=== PATIENT | female | born 1950 | race African-American/Black ===

== ENCOUNTER → 2016-11-15 | Outpatient (CLI) | payer MEDICARE, OTHER ==
[~2016-11-15] MED LIST: ASCO500T2 PO; BUPIVACAINE MPF 0.25% 10 ML VIAL. ONE; CALC500T27 PO; CHOL500016 PO; IOHEXOL 180 MG/ML 10 ML VIAL. ONE; MULT-208 PO; OMEG300C PO; OMEP20TA63 PO; methylPREDNISolone ACETATE 40 MG/ML VIAL. ONE; methylPREDNISolone ACETATE 80 MG/ML VIAL. ONE
--- NOTE | 2016-11-16 06:16 | PAIN ---
DATE OF SERVICE: 11/15/2016 INITIAL CONSULTATION FOR PAIN CLINIC CHIEF COMPLAINT: Low back and left hip and lower extremity pain. HISTORY OF PRESENT ILLNESS: This is a 66-year-old female who presents with a history of pain in the low back, left hip and leg radiating for about 4 months now, not a result of any specific injury or action that she is aware of. This came up gradually, worse with standing and walking, significant pain in the left groin as well as in the low back radiating to the anterior lateral thigh, medial thigh, medial lower leg to the level of the ankle on the left side only. The patient reports no significant pain on the right side. Left side ____ of the leg as well as across the low back, lateral thigh, medial thigh, anterior and medial lower leg, it was noted. The patient reports it is sharp, alternating with radiating pain, shooting and stabbing occasionally and aching and sharp in the groin as well. The patient reports it is worse with putting all of her weight on her left leg, standing for more than about 10-15 minutes. She has tried physical therapy, which temporarily decreased the pain. Also, she is doing exercises on her own currently through [facility]. She has tried hydrocodone, which does help the pain about 50%. The patient reports it awakens her from sleep at least twice at night in the left hip and does affect her ability to walk significantly, although she is not using any assistive devices at this time currently. The patient did have plain films of the hip and lumbar spine showing severe degenerative disk disease and facet arthropathy at the L5-S1 level with L4-L5 anterolisthesis, also with osteoarthritis of the left hip and degenerative joint disease of the left hip. The patient reports it is better with stretching her legs. She is having her pull on her left leg at night when she is lying down and this does relieve some of the pain temporarily. The patient reports her disability rating from 0-10, 10 being the worst, as an 8 with family and home responsibilities, recreation, social activity and self-care, 10 with sexual behavior, 7 with life support activities. No loss of motor function, but significant fatigability with the left leg with standing and walking. PAST MEDICAL HISTORY: Significant for asthma, seasonal sinus congestion, gastroesophageal reflux, arthritis, headaches. PREVIOUS SURGERIES: Include tubal ligation and bunionectomy in both feet. CURRENT MEDICATIONS: Include Prilosec, fish oil, multivitamins, vitamin D, vitamin C, calcium, hydrocodone. ALLERGIES: The patient has no known drug allergies. FAMILY HISTORY: Significant for breast cancer and stomach cancer. SOCIAL HISTORY: The patient does not smoke. Drinks 1 glass of wine about twice a month on average. She is , lives with her spouse. No children living at home, lives locally in [place], [place]. REVIEW OF SYSTEMS: Positive for those items mentioned in the history of present illness. All systems reviewed and otherwise negative. It is complete, full and well documented on the patient's chart. PHYSICAL EXAMINATION: VITAL SIGNS: The patient's blood pressure is 135/95, pulse 103, respirations 18, temperature 98.1 degrees Fahrenheit. Height is 5 feet 8 inches, weight is 165 pounds. GENERAL: The patient is awake, alert, oriented, appropriate, has a very pleasant demeanor. The patient is accompanied by her spouse. HEENT: Shows normocephalic, atraumatic. Extraocular movements are intact and symmetrical. Oral cavity shows mucous membranes are moist and pink. Dentition is intact. NECK: Shows anterior throat supple without palpable lymphadenopathy noted. Swallow reflex is symmetrical. Neck shows full rotational motion of the cervical spine without difficulty or tenderness. CHEST: Shows normal on inspection. Breath sounds are clear to auscultation bilaterally. HEART: Shows S1 and S2 clear. No murmurs auscultated. ABDOMEN: Soft, nontender, nondistended. No palpable organomegaly is noted. No rebound or guarding demonstrated. BACK: Shows spine grossly in the midline. Normal-appearing thoracic kyphosis and lumbar lordotic curvature. No previous bruises, lesions, rashes or scars are noted. Lumbar paraspinous musculature shows symmetrical with inspection, with palpation shows some very mild tenderness in the low lumbar distribution diffusely bilaterally, slightly worse on the left than the right, but does not appear asymmetric, no trigger points, no radiation of pain, no tenderness over the spinous processes. No tenderness over the sacrum or sacroiliac regions with palpation. The patient has good rotational motion both laterally as well as extension and flexion without significant pain reported as well. LOWER EXTREMITIES: Show deep tendon reflexes 2+ in the patellar and 1+ tendo calcaneus tendons, are equal. Motor exam is strong with approximately 4 on a scale of 5 with left dorsiflexion, extension, quadriceps and hamstring flexion, 5/5 on the right. Peripheral pulses are 1+ posterior tibial and dorsalis pedis pulses. No peripheral edema is noted. No clubbing, no cyanosis. Lower extremities are warm and dry to touch, equal in color and appearance. The patient shows positive straight leg raise about 45 degrees on the left and negative on the right. Also, positive Herminio's maneuver with external rotation of the left hip with knee flexion and negative on the right side as well. The patient is able to stand, stand on her toes without significant difficulty, walks with a slight wavering gait favoring the left lower extremity slightly, but without any assistive devices to ambulate. IMPRESSION: 1. This is a 66-year-old female with an approximately 4-month history of increasing low back pain with significant findings on x-ray with both degenerative joint disease of the left hip and degenerative disk disease and spondylolisthesis of the lumbar spine with both radicular qualities and intra-articular hip pain on the left side. 2. Arthritis. PLAN: Options were discussed with the patient and the patient's spouse who accompanied her to visit today including conservative medical management, continued physical therapies, interventional techniques. She would like to pursue interventional techniques. We discussed a left intra-articular hip joint injection using description as well as anatomical models to describe the procedure. The patient would like to proceed with this. Risks were then discussed including, but not limited to bleeding, infection, possibility of intravascular injection sequelae, spread of local anesthetic and numbness, side effects of steroid medications, exposure to fluoroscopy as well as poor results regarding pain control. The patient understands and wishes to proceed. The patient will return to clinic in approximately 2 weeks for followup, was counseled on return appointment, activity level and side effects to be aware of. We did discuss the possibility of a lumbar epidural steroid injection if the hip joint is feeling much better, but still having the radicular qualities into the lower leg on her return. DIAGNOSIS: Primary osteoarthritis with degenerative joint disease, left hip. PROCEDURE: Left intra-articular hip joint injection with fluoroscopic guidance under sterile prep and drape using local anesthetic. MEDICATIONS INJECTED: 80 mg Depo-Medrol plus 3 mL of 0.25% bupivacaine and 2 mL of Isovue for contrast. CONDITION AT DISCHARGE: Stable. The patient tolerated the procedure well, had no complications. MARBELLA OSORIO MD DR: BONITA/nevaeh JOB#: [id number] / [id number]
== END | disposition home or self-care (01) ==
LOC: PNCL 08:28
PROVIDERS: ATTEND Anesthesiology
DX: M16.12 Unilateral primary osteoarthritis, left hip (principal); J45.909 Unspecified asthma, uncomplicated; K21.9 Gastro-esophageal reflux disease without esophagitis; Z80.3 Family history of malignant neoplasm of breast; Z80.0 Family history of malignant neoplasm of digestive organs; Z98.51 Tubal ligation status
CPT/HCPCS: 20610; 77002; J1040; J3490; J1030

== ENCOUNTER → 2016-11-29 | Outpatient (CLI) | payer MEDICARE, OTHER ==
[~2016-11-29] MED LIST changes: -BUPIVACAINE MPF 0.25% 10 ML VIAL. ONE; -IOHEXOL 180 MG/ML 10 ML VIAL. ONE; -methylPREDNISolone ACETATE 40 MG/ML VIAL. ONE; -methylPREDNISolone ACETATE 80 MG/ML VIAL. ONE
--- NOTE | 2016-11-29 18:52 | PAIN ---
DATE OF SERVICE: 11/29/2016 PROGRESS NOTE FOR PAIN CLINIC DIAGNOSES: 1. Lumbar radiculopathy with lumbar degenerative disk disease. 2. Left hip joint pain with primary osteoarthritis. HISTORY OF PRESENT ILLNESS: The patient is a 66-year-old female who returns for followup status post left hip joint intraarticular injection reports near 100% improvement in her left hip joint. She is very pleased with her progress of this, still having some pain across the low back and bilateral lower extremities, mostly in the lateral and posterior thighs, lateral and medial lower legs and the posterior lower legs bilaterally. The patient reports it is a sharp pain, alternating with an aching, dull pain with heat sensation in the lower leg. The patient reports that her hip is doing so much better that she is increasing her activity quite significantly, but the back pain and leg pain is limiting her to fair extent as well. We reviewed the patient's MRI scan showing some degenerative disk disease and discussed that with the patient once again today. She would like to wait on any further procedures at this time. We will have her come back in about 1 week for a lumbar epidural steroid injection at that time. The patient reports otherwise doing very well, reports the pain in her hip is 0 on a scale of 10 and the low back is 4. The patient reports no new bowel or bladder incontinence, no new motor or sensory deficits. PHYSICAL EXAMINATION: VITAL SIGNS: The patient's blood pressure 120/71, pulse 71, respirations 20, temperature 98.3 degrees Fahrenheit, weight is 164 pounds. GENERAL: The patient is awake, alert, oriented, appropriate, very pleasant demeanor. The patient accompanied by her . HEENT: Head shows normocephalic, atraumatic. Extraocular movements are intact and symmetrical. Oral cavity, mucous membranes are moist and pink. NECK: Shows anterior throat supple. CHEST: Shows breath sounds clear to auscultation bilaterally. HEART: Shows S1 and S2 clear. No murmurs auscultated. ABDOMEN: Soft, nontender, nondistended. BACK: Shows spine grossly in midline. The patient's lumbar paraspinous muscle shows some diffuse tenderness with palpation in the lower lumbar distribution only without atrophy, hypertrophy without asymmetry, no radiation of pain, no tenderness over the sacrum or sacroiliac regions. The patient shows good rotation and motion of lumbar spine, both laterally as well as extension and flexion without difficulty. LOWER EXTREMITIES: Showed deep tendon reflexes at 2+ in the patellar tendons. Motor exam is approximately 4 on a scale of 5 with left dorsiflexion, extension and 5/5 on the right. Gaenslen's procedure is negative bilaterally. Herminio's procedure is very negative now with external rotation of the left hip much different from previous exam. Options were discussed with the patient and the patient's old chart was reviewed as her current medication regimen updated. Current review of systems updated today as well and we will have patient return in approximately 1 week as she would like to wait on any further injections until she is mentally prepared for this. We will have her return for lumbar epidural steroid injection. We discussed the procedure using anatomical models to describe it and questions were answered for the patient. She will return as noted and we will proceed at that time. MARBELLA OSORIO MD DR: BONITA/nevaeh JOB#: [id number] / [id number]
== END | disposition home or self-care (01) ==
LOC: PNCL 08:56
PROVIDERS: ATTEND Anesthesiology
DX: M51.16 Intervertebral disc disorders with radiculopathy, lumbar region (principal); M16.12 Unilateral primary osteoarthritis, left hip
CPT/HCPCS: G0463

== ENCOUNTER → 2016-12-06 | Outpatient (CLI) | payer MEDICARE, OTHER ==
[~2016-12-06] MED LIST changes: +IOHEXOL 180 MG/ML 10 ML VIAL. ONE; +methylPREDNISolone ACETATE 40 MG/ML VIAL. ONE; +methylPREDNISolone ACETATE 80 MG/ML VIAL. ONE
--- NOTE | 2016-12-06 19:35 | PAIN ---
DATE OF SERVICE: 12/06/2016 DIAGNOSES: 1. Lumbar radiculopathy with lumbar degenerative disease. 2. Left hip joint pain with primary osteoarthritis. HISTORY OF PRESENT ILLNESS: The patient is a 66-year-old female, who returns for followup status post left hip joint injection. The patient did very well with this near 100% improvement, still some pain in the low back and bilateral lower extremities, somewhat worse on the left than the right, present, she was ____ and trying a lumbar epidural steroid injection on last visit and come back about a week ago and she would like to try this today, she says that time to think about this and talked with her spouse to starting it and like to proceed. The patient with some degenerative disk disease and lumbar spine, mostly at the L4-L5 level. The patient reports no new motor or sensory deficits, still significant pain in the low back in the left leg with some painful and swollen feeling in the knee on the left side raising from 1 to 7 on a scale of 10, worse with activity, standing, walking, changing positions and tingling pain that tight in the low back and the left leg greater than the right. The patient reports no new motor or sensory deficits, no new bowel or bladder incontinence or other complaints. PHYSICAL EXAMINATION: VITAL SIGNS: The patient's blood pressure 107/66, pulse 93, respirations are 16, temperature 97.9 degrees Fahrenheit. Height is 5 feet 8 inches, weight is 161 pounds. GENERAL: The patient is awake, alert, oriented, appropriate, very pleasant demeanor. HEENT: Head shows normocephalic, atraumatic. Extraocular movements are intact and symmetrical. Oral cavity, mucous membranes moist and pink. Dentition is intact. NECK: Shows anterior throat supple without palpable lymphadenopathy noted. Swallow reflex is symmetrical. CHEST: Shows normal on inspection. Breath sounds clear to auscultation bilaterally. HEART: Shows S1 and S2 clear. ABDOMEN: Soft, nontender, nondistended. BACK: Shows spine grossly midline. Lumbar paraspinous muscle shows some moderate tenderness with palpation only in the lower lumbar distribution without significant radiation. The patient has good rotational motion of lumbar spine, both laterally as well as extension and flexion. EXTREMITIES: Lower extremities showed deep tendon reflexes 2+ in the patellar tendons. Motor exam is strong with 5/5 dorsiflexion, extension, quadriceps and hamstring flexion. Options were discussed with the patient. We will proceed with a lumbar epidural steroid injection today with fluoroscopic guidance. Risks were again discussed including, but not limited to bleeding, infection, possibility of epidural hematoma, subsequent neurologic compromise, dural puncture, headaches, spinal cord and/or nerve damage, side effects of steroid medication and poor results regarding pain control. The patient understands and wishes to proceed. The patient will return to clinic in approximately 2 weeks for followup. She was counseled as to return appointment, activity level and side effects to be aware of. DIAGNOSES: Lumbar radiculopathy with lumbar degenerative disk disease. PROCEDURES: Lumbar epidural steroid injection in translaminar approach at the L4-L5 level using C-arm fluoroscopic guidance under sterile prep and drape using local anesthesia MEDICATIONS INJECTED: 120 mg Depo-Medrol plus 10 mL of preservative-free normal saline and 2 mL of Isovue for contrast. CONDITION AT DISCHARGE: Stable. The patient tolerated procedure well, had no complications. MARBELLA OSORIO MD DR: BONITA/nevaeh JOB#: [id number] / [id number]
== END | disposition home or self-care (01) ==
LOC: PNCL 09:45
PROVIDERS: ATTEND Anesthesiology
DX: M51.16 Intervertebral disc disorders with radiculopathy, lumbar region (principal); M16.12 Unilateral primary osteoarthritis, left hip
CPT/HCPCS: 62323; J1030; J1040

== ENCOUNTER → 2016-12-25 | Outpatient (CLI) | payer MEDICARE, OTHER ==
[~2016-12-25] MED LIST changes: -IOHEXOL 180 MG/ML 10 ML VIAL. ONE; -methylPREDNISolone ACETATE 40 MG/ML VIAL. ONE; -methylPREDNISolone ACETATE 80 MG/ML VIAL. ONE
--- NOTE | 2016-12-26 02:06 | PAIN ---
DATE OF SERVICE: 12/25/2016 PROGRESS NOTE FOR PAIN CLINIC DIAGNOSES: 1. Lumbar radiculopathy with lumbar degenerative disk disease. 2. Left hip joint pain with primary left hip osteoarthritis. HISTORY OF PRESENT ILLNESS: The patient is a 66-year-old female who returns for followup status post lumbar epidural steroid injection x 1 and previous left hip joint injection. The patient did very well with each of these, reports about 100% improvement after her lumbar epidural steroid injection, which was on 12/06/2016. The patient reports a 0 pain on a scale of 10 at anytime during the day. She has an increase in her activity with greater ease and comfort and sleeping well at night, no disruptions from that, is very pleased with her progress thus far. The patient relates the story while she was playing with her granddaughter yesterday for about 6 hours, sitting on a hard surface floor, had no difficulty, no pain or distress or need to change her activity. The patient is very pleased with her progress, reports no new motor or sensory deficits, no new bowel or bladder incontinence or other complaints. PHYSICAL EXAMINATION: VITAL SIGNS: The patient's blood pressure is 106/71, pulse 90, respirations are 18, temperature 98.1 degrees Fahrenheit. Height is 5 feet 8 inches, weight is 165 pounds. GENERAL: The patient is awake, alert, oriented, appropriate, has a very pleasant demeanor. HEENT: Head shows normocephalic, atraumatic. Extraocular movements are intact and symmetrical. Oral cavity shows mucous membranes moist and pink. Dentition is intact. NECK: Shows anterior throat supple without palpable lymphadenopathy noted. Swallow reflex is symmetrical. CHEST: Shows normal on inspection. Breath sounds are clear to auscultation bilaterally. HEART: Shows S1, S2 clear. ABDOMEN: Soft, nontender, nondistended. BACK: Shows spine grossly in the midline. Moderate discomfort with only deep palpation in the lumbar paraspinous muscles bilaterally without radiation or asymmetry. The patient has full rotational motion of the lumbar spine, both laterally as well as extension and flexion. EXTREMITIES: Lower extremities show deep tendon reflexes 2+ in the patellar tendons. Motor exam is strong with 5/5 dorsiflexion, extension, quadriceps and hamstring flexion and equal. Options were discussed with the patient and the patient's old chart was reviewed as her current medication regimen updated. Current review of systems updated today as well. We will hold on any further injections as she is doing much better. The patient was encouraged to increase activity greater with gradual increase in activity as tolerated and will report back on an as-needed basis at this time. MARBELLA OSORIO MD DR: BONITA/nevaeh JOB#: [id number] / [id number]
== END | disposition home or self-care (01) ==
LOC: PNCL 09:31
PROVIDERS: ATTEND Anesthesiology
DX: M51.16 Intervertebral disc disorders with radiculopathy, lumbar region (principal); M25.552 Pain in left hip; M16.12 Unilateral primary osteoarthritis, left hip
CPT/HCPCS: G0463

== ENCOUNTER 2019-05-14 16:31 | Emergency (ER) | payer MEDICARE ==
[~2019-05-14] VITALS: Ht 172.7 cm; Wt 74.8 kg
[~2019-05-14 16:31] MED LIST changes: -CALC500T27 PO; +CALC500T30 PO
[2019-05-14] MEDS ORDERED: HYDROcodone/APAP 5/325MG 1 TAB TABLET PO ONE (17:00)
[2019-05-14] MEDS ORDERED: ONDANSETRON ODT 4 MG TAB.RAPDIS. PO ONE (17:00)
[2019-05-14] MEDS ORDERED: diazePAM 5 MG TABLET PO ONE (17:00)
--- NOTE | 2019-05-14 17:18 | PHYS DOC ---
Adult General Chief Complaint Chief Complaint: MECHANICAL FALL HPI HPI Patient is a 68 year old female with no significant medical history who presents to the ED today complaining of falling down 7 steps. Patient states a carpeted been cleaned and she was trying to walk down a weight carpeted stair case, she states she slid and fell down 7 steps, she states she hit the back of her head on the carpet as well as her low back. Denies any loss of consciousness. Denies being on any anticoagulants. Denies any neck pain. She is complaining of moderate back pain most of it on the lower back specifically buttocks. Patient states the pain is worse on sitting on her buttocks. (FIDEL ALCANTAR APRN) Review of Systems Review of Systems Constitutional: Denies fever or chills [] Eyes: Denies change in visual acuity, redness, or eye pain [] HENT: Denies nasal congestion or sore throat [] Respiratory: Denies cough or shortness of breath [] Cardiovascular: No additional information not addressed in HPI [] GI: Denies abdominal pain, nausea, vomiting, bloody stools or diarrhea [] : Denies dysuria or hematuria [] Musculoskeletal: Reports back pain specifically low back pain Integument: Denies rash or skin lesions [] Neurologic: Reports hitting the back of the head when she fell. Denies headache, focal weakness or sensory changes [] All other systems were reviewed and found to be within normal limits, except as documented in this note. (FIDEL ALCANTAR APRN) Current Medications Current Medications Current Medications Medications (Trade) Dose Ordered Sig/Anni Start Time Stop Time Status Last Admin Dose Admin Acetaminophen/ Hydrocodone Bitart (Lortab 5/325) 2 tab 1X ONCE 05/14/19 17:00 05/14/19 17:01 DC 05/14/19 17:43 2 TAB Diazepam (Valium) 5 mg 1X ONCE 05/14/19 17:00 05/14/19 17:01 DC 05/14/19 17:43 5 MG Ondansetron HCl (Zofran Odt) 4 mg 1X ONCE 05/14/19 17:00 05/14/19 17:01 DC 05/14/19 17:43 4 MG (ROSALVA VINES DO) Allergies Allergies Allergies Coded Allergies Type Severity Reaction Last Updated Verified Penicillins Allergy Intermediate 11/15/16 Yes (ROSALVA VINES DO) Physical Exam Physical Exam Constitutional: Well developed, well nourished, no acute distress, non-toxic appearance. [] HENT: Normocephalic, atraumatic, bilateral external ears normal, oropharynx moist, no oral exudates, nose normal. [] Eyes: PERRLA, EOMI, conjunctiva normal, no discharge. [] Neck: Normal range of motion, no tenderness, supple, no stridor. [] Cardiovascular:Heart rate regular rhythm, no murmur [] Lungs & Thorax: Bilateral breath sounds clear to auscultation [] Abdomen: Bowel sounds normal, soft, no tenderness, no masses, no pulsatile masses. [] Skin: Warm, dry, no erythema, no rash. [] Back: Diffuse paraspinal muscle tenderness to bilateral lumbar spine worse around the coccyx, no thoracic midline tenderness, some paraspinal muscle tenderness noted on the right thoracic spine, no CVA tenderness. [] Extremities: No tenderness, no cyanosis, no clubbing, ROM intact, no edema. [] Neurologic: Alert and oriented X 3, normal motor function, normal sensory function, no focal deficits noted. [] Psychologic: Affect normal, judgement normal, mood normal. [] (FIDEL ALCANTAR APRN) Current Patient Data Vital Signs Vital Signs Date Time Temp Pulse Resp B/P (MAP) Pulse Ox O2 Delivery O2 Flow Rate FiO2 05/14/19 18:52 83 18 95 05/14/19 17:43 Room Air 05/14/19 16:50 99.2 124/96 (105) 99.2 (ROSALVA VINES DO) EKG EKG [] (FIDEL ALCANTAR APRN) Radiology/Procedures Radiology/Procedures []PROCEDURE: CT HEAD AND CERVICAL SPINE WO Examination: CT THORACIC SPINE WO CONTRAST, CT HEAD AND CERVICAL SPINE WO, CT LUMBAR SPINE WO CONTRAST History: Fall, pain Comparison/Correlation: None Findings: Axial images of the head, cervical spine, thoracic spine, and lumbar spine were obtained. Sagittal and coronal reformatted images of the spine were provided. Ventricles are normal size. No intracranial hemorrhage, midline shift, or mass effect. No depressed skull fracture. Globes and optic nerves are unremarkable. Posterior left apical spiculated bilobed mass or 2 adjacent masses is evident. These collectively measure 1.9 cm transverse by 1.1 cm anteroposterior by 1.4 cm longitudinal. Biapical pleural thickening noted. Emphysematous involvement of the lung apices noted. Advanced atlantoaxial joint degenerative remodeling and spurring noted. Reversal of cervical lordosis is present. Severe C3-4 disc space narrowing is present. Moderate to severe C6-7 disc space narrowing is present. Bony encroachment on the neural foramina involves C3-4 bilaterally greater on the right. Multilevel degenerative space narrowing of the thoracic spine is present. Alignment of the thoracic spine is unremarkable. Multilevel facet joint degenerative remodeling of the low lumbar spine is evident. Minimal anterolisthesis of L3 in relation L4 is noted. Endplate sclerosis at L5-S1 noted. Bony encroachment on the neural foramina bilaterally is evident. Concentric disc bulge at L5-S1 is present. Ligamentum flavum hypertrophy and facet joint degenerative hypertrophy of the low lumbar spine. Spinal canal stenosis is severe at L4-5 and L5-S1. Impression: Spiculated left apical mass of significant concern for lung carcinoma. PET CT examination should be considered. Emphysema. Degenerative changes of the cervical spine. Anterolisthesis of L4 over L5 presumably related to degenerative change. Concentric disc bulge at L5-S1. Severe canal stenoses at L4-5 and L5-S1. No fracture. No intracranial hemorrhage. PQRS Compliance Statement: One or more of the following individualized dose reduction techniques were utilized for this examination: 1. Automated exposure control 2. Adjustment of the mA and/or kV according to patient size 3. Use of iterative reconstruction technique Electronically signed by: Edmar Wolf MD (05/14/2019 5:59 PM) [facility] DICTATED and SIGNED BY: EDMAR WOLF MD DATE: 05/14/19 1759 (FIDEL ALCANTAR APRN) Course & Med Decision Making Course & Med Decision Making Pertinent Labs and Imaging studies reviewed. (See chart for details) This is a 68-year-old female patient who presents to the ED today with back pain and posterior head pain after falling down 7 steps, no loss of consciousness. CT of the head, cervical spine, thoracic and lumbar spine were negative for any fracture, patient was noted for possible left apical lung cancer. Results were discussed with patient. She promised to follow-up with her own PCP in the course of this week. She is a smoker, she was encouraged to consider smoking cessation. (FIDEL ALCANTAR APRN) Dragon Disclaimer Dragon Disclaimer This electronic medical record was generated, in whole or in part, using a voice recognition dictation system. (FIDEL ALCANTAR APRN) Departure Departure Impression: Primary Impression: Fall down steps Additional Impressions: Head contusion Lung mass Contusion of thoracic wall Lumbar contusion Smoking addiction Disposition: 01 HOME, SELF-CARE Condition: STABLE Referrals: PATI MAHMOOD MD (PCP) follow up in one week Patient Instructions: Contusion, [id number], Fall Prevention and Home Safety Additional Instructions: You were evaluated in the emergency room after falling, your cat scan was noted for a mass in your left lung. Please contact your primary care doctor and follow-up this. Consider smoking cessation. Scripts Diclofenac Potassium (DICLOFENAC POTASSIUM) 50 Mg Tablet 1 TAB PO BID, #20 TAB 0 Refills Prov: FIDEL ALCANTAR APRN 05/14/19 Cyclobenzaprine Hcl (CYCLOBENZAPRINE HCL) 10 Mg Tablet 1 TAB PO TID, #30 TAB Prov: FIDEL ALCANTAR APRN 05/14/19 Hydrocodone/Apap 5-325 (NORCO 5-325 TABLET) 1 Each Tablet 1 TAB PO Q4-6HRS PRN for PAIN MDD 8, #40 TAB Prov: FIDEL ALCANTAR APRN 05/14/19 Attending Signature Attending Signature I have reviewed the PA/JOGGLE PRESS OPERATOR's note and plan of care. I was available for consultation as needed during the patient's visit in the emergency department. I agree with the clinical impression, plan, and disposition. (ROSALVA VINES DO) Problem Qualifiers Primary Impression: Fall down steps Encounter type: initial encounter Qualified Codes: W10.8XXA - Fall (on) (from) other stairs and steps, initial encounter Additional Impressions: Head contusion Encounter type: initial encounter Contusion of head detail: unspecified part of head Qualified Codes: S00.93XA - Contusion of unspecified part of head, initial encounter Contusion of thoracic wall Encounter type: initial encounter Contusion of thoracic wall detail: unspecified area of thoracic wall Qualified Codes: S20.20XA - Contusion of thorax, unspecified, initial encounter Lumbar contusion Encounter type: initial encounter Qualified Codes: S30.0XXA - Contusion of lower back and pelvis, initial encounter FIDEL ALCANTAR APRN May 14, 2019 17:18 ROSALVA VINES DO May 15, 2019 01:16
--- NOTE | 2019-05-14 18:02 | RAD ---
Examination: CT THORACIC SPINE WO CONTRAST, CT HEAD AND CERVICAL SPINE WO, CT LUMBAR SPINE WO CONTRAST History: Fall, pain Comparison/Correlation: None Findings: Axial images of the head, cervical spine, thoracic spine, and lumbar spine were obtained. Sagittal and coronal reformatted images of the spine were provided. Ventricles are normal size. No intracranial hemorrhage, midline shift, or mass effect. No depressed skull fracture. Globes and optic nerves are unremarkable. Posterior left apical spiculated bilobed mass or 2 adjacent masses is evident. These collectively measure 1.9 cm transverse by 1.1 cm anteroposterior by 1.4 cm longitudinal. Biapical pleural thickening noted. Emphysematous involvement of the lung apices noted. Advanced atlantoaxial joint degenerative remodeling and spurring noted. Reversal of cervical lordosis is present. Severe C3-4 disc space narrowing is present. Moderate to severe C6-7 disc space narrowing is present. Bony encroachment on the neural foramina involves C3-4 bilaterally greater on the right. Multilevel degenerative space narrowing of the thoracic spine is present. Alignment of the thoracic spine is unremarkable. Multilevel facet joint degenerative remodeling of the low lumbar spine is evident. Minimal anterolisthesis of L3 in relation L4 is noted. Endplate sclerosis at L5-S1 noted. Bony encroachment on the neural foramina bilaterally is evident. Concentric disc bulge at L5-S1 is present. Ligamentum flavum hypertrophy and facet joint degenerative hypertrophy of the low lumbar spine. Spinal canal stenosis is severe at L4-5 and L5-S1. Impression: Spiculated left apical mass of significant concern for lung carcinoma. PET CT examination should be considered. Emphysema. Degenerative changes of the cervical spine. Anterolisthesis of L4 over L5 presumably related to degenerative change. Concentric disc bulge at L5-S1. Severe canal stenoses at L4-5 and L5-S1. No fracture. No intracranial hemorrhage. PQRS Compliance Statement: One or more of the following individualized dose reduction techniques were utilized for this examination: 1. Automated exposure control 2. Adjustment of the mA and/or kV according to patient size 3. Use of iterative reconstruction technique Electronically signed by: Edmar Sierra MD (05/14/2019 5:59 PM) [facility]
[2019-05-14] MEDS ORDERED: CYCL10TA2 PO (18:43)
[2019-05-14] MEDS ORDERED: HYDR-3164 PO (18:43)
[2019-05-14] MEDS ORDERED: DICL50TA2 PO (18:43)
[2019-05-14 18:52] VITALS: BP 105/66
== END 2019-05-14 18:56 | disposition home or self-care (01) ==
LOC: ER 16:31
DX: S30.0XXA Contusion of lower back and pelvis, initial encounter (principal); S20.20XA Contusion of thorax, unspecified, initial encounter; S00.83XA Contusion of other part of head, initial encounter; R91.8 Other nonspecific abnormal finding of lung field; F17.200 Nicotine dependence, unspecified, uncomplicated; Z88.0 Allergy status to penicillin; W10.8XXA Fall (on) (from) other stairs and steps, initial encounter; Y93.89 Activity, other specified; Y92.89 Other specified places as the place of occurrence of the external cause; Y99.8 Other external cause status
CPT/HCPCS: 70450; 72125; 72128; 72131; 99284; Q0162